=== PATIENT | female | born 1945 | race Hispanic/Latino ===

== ENCOUNTER 2018-12-07 14:10 | Outpatient (CLI) | payer MEDICARE, OTHER | END 2018-12-07 14:11 | disposition home or self-care (01) | LOC: LABHHL 14:10 | PROVIDERS: ATTEND Surgery | DX: N64.1 Fat necrosis of breast (principal) | CPT/HCPCS: 88305 ==

== ENCOUNTER 2018-12-18 13:39 | Outpatient (CLI) | payer MEDICARE ==
--- NOTE | 2018-12-18 16:28 | Ultrasound Report ---
RIGHT BREAST ULTRASOUND HISTORY: A 4 mm mammographic density which could not be targeted for a stereotactic biopsy. We attemp shefali to do the biopsy on the same day as this ultrasound. Previous images demonstrated a mammographic density which was only identified on MLO and lateral images. She also had an ultrasound-guided biopsy of the right breast but it was apparent on the postbiopsy mammogram that the biopsy lesion was disco rdant with the original mammographic finding. COMPARISON: No comparison ultrasound. FINDINGS: Sonographic evaluation focused upon the upper the right breast demonstrates no distinct abn ormality to correlate with the mammographic finding. A biopsy clip is identified at 11:00 10 cm from the nipple and a 6 x 3 x 2 mm hypoechoic structure is identified near the clip. A few tiny scattered cysts of the breast but nothing to correlate with the mammographic finding. IMPRESSION Negative right breast ultrasound with no finding to correlate with the previously identified 4 mm nohemi mographic density. Recommend short-term follow-up right mammogram to reevaluate the mammographic dens ity. A repeat ultrasound may be indicated at the time of that follow up. BIRADS 3: Probably benign. Signer Name: Fabian Metzger MD Signed: 12/18/2018 4:24 PM Workstation Name: [id number]
== END 2018-12-18 13:40 | disposition home or self-care (01) ==
LOC: SPVWC 13:39
PROVIDERS: ATTEND Surgery
DX: R92.2 Inconclusive mammogram (principal)

== ENCOUNTER 2019-03-26 12:49 | Outpatient (CLI) | payer MEDICARE ==
--- NOTE | 2019-03-26 14:14 | Mammography Report ---
RIGHT DIGITAL DIAGNOSTIC MAMMOGRAM WITH CAD -- 03/26/2019 RIGHT LIMITED BREAST ULTRASOUND INDICATION: Six-month follow-up after benign biopsy and for a second mammographic lesion for which ta rgeting for a stereotactic biopsy was not successful. TECHNIQUE: Digital right mammographic imaging was performed. Limited ultrasound was performed. This examination was interpreted with the benefit of Computer-Aided Detection (CAD) analysis. COMPARISON: 12/18/2018 ultrasound and 12/07/2018 mammogram FINDINGS: Breast Density: The breast is almost entirely fatty. MAMMOGRAPHIC FINDINGS: There is no evidence of dominant mass, suspicious calcifications or architectu ral distortion in the right breast. The previously described mammographic density has resolved. An up per outer hydroMark biopsy clip and no mammographic finding at the clip. ULTRASOUND FINDINGS: Targeted ultrasound evaluation was performed of the area of interest. Ultrasou nd of the upper outer right breast was performed and demonstrated a biopsy clip and no other finding. No mass or suspicious shadowing. IMPRESSION: Negative mammogram and negative right breast ultrasound. Recommend return to routine scre ening. Follow up recommendation: Routine yearly BI-RADS Category 1: Negative. A "normal" or negative report should not discourage follow up or biopsy of a clinically significant f inding. A written summary of these findings will be mailed to the patient. The patient will be entered into a mammography reporting system which will generate a reminder letter for the patient's next appointmen t at the appropriate interval. According to the [employer], yearly mammograms are recommended starting at age 40 and continuing as long as a woman is in good health. Breast MRI is recommended for women with an jack roximately 20-25% or greater lifetime risk of breast cancer, including women with a strong family his tory of breast or ovarian cancer and women who have been treated for Hodgkin's disease. Signer Name: Fabian Metzger MD Signed: 03/26/2019 2:10 PM Workstation Name: [id number]
== END 2019-03-26 12:50 | disposition home or self-care (01) ==
LOC: SPVWC 12:49
PROVIDERS: ATTEND Surgery
DX: R92.8 Other abnormal and inconclusive findings on diagnostic imaging of breast (principal)

== ENCOUNTER 2020-10-29 13:13 | Outpatient (CLI) | payer MEDICARE ==
--- NOTE | 2020-10-29 17:40 | Mammography Report ---
DIGITAL SCREENING MAMMOGRAM WITH CAD, 10/29/2020 CLINICAL INFORMATION / INDICATION: Routine screening mammography. TECHNIQUE: Digital bilateral 2D mammography was obtained in the craniocaudal and mediolateral obliqu e projections. This examination was interpreted with the benefit of Computer-Aided Detection analysis . COMPARISON: Prior mammograms 10/29/2019 and 03/26/2019 FINDINGS: Breast Density: The breasts are almost entirely fatty. No dominant mass, suspicious calcifications, or architectural distortion in either breast. There is a stable nodular density with associated biopsy clip in the right breast. There has been no significant change compared with the prior examinations. IMPRESSION: No mammographic evidence of malignancy. Follow up recommendation: Routine yearly BI-RADS Category 2: Benign. A "normal" or negative report should not discourage follow up or biopsy of a clinically significant f inding. A written summary of these findings will be mailed to the patient. The patient will be entered into a mammography reporting system which will generate a reminder letter for the patient's next appointmen t at the appropriate interval. The [employer] recommends yearly mammograms starting at age 40 and continuing as l janie as a woman is in good health. Breast MRI is recommended for women with an approximate 20-25% or greater lifetime risk of breast cancer, including women with a strong family history of breast or ova martha cancer or who have been treated for Hodgkin's disease. Signer Name: Diann Thomas MD Signed: 10/29/2020 5:36 PM Workstation Name: [id number]
== END 2020-10-29 13:14 | disposition home or self-care (01) ==
LOC: SPVWC 13:13
PROVIDERS: ATTEND Surgery
DX: Z12.31 Encounter for screening mammogram for malignant neoplasm of breast (principal); N64.89 Other specified disorders of breast
CPT/HCPCS: 77067